=== PATIENT | female | born 1960 | race Caucasian/White ===

== ENCOUNTER → 2016-10-11 | Outpatient (REF) ==
[~2016-10-11] MED LIST: CEPHALEXIN500 M1 PO; FLEXERIL 1010 MG/TAB PO; IBU400 MG PO; LORTAB 5/500 501 TAB PO; NAPROSYN500 MG PO; NO HOME MEDICATIONS; NORCO 325 MG-51 TAB PO; PENICILLIN V250 MG PO; REGLAN 10MG10 MG/TAB PO
== END ==
LOC: WSOH 08:45 → WSPT 09:00
DX: Z02.1 Encounter for pre-employment examination (principal)

== ENCOUNTER → 2017-02-21 | Outpatient (REF) | LOC: WSOH 09:37 → WSPT 09:45 | DX: Z02.1 Encounter for pre-employment examination (principal) ==